=== PATIENT | male | born 1955 | race Caucasian/White ===

== ENCOUNTER 2024-03-08 07:17 | Day surgery (SDC) | payer MEDICARE ==
[~2024-03-08 07:17] MED LIST: Brimonidine 0.2% Ophth Soln 5 ML Bottle EYERT ONE; Cyclopentolate 1% Opth Soln 2 ML Bottle EYERT SCH; Lactated Ringers 1,000 ML IV SCH; Lidocaine 1% PF 2 ML SDV INJECT SCH; MOXIFLOXACIN PF in BSS 1 MG/ML VIAL IO SCH; Phenylephrine 2.5% Ophth Soln 2 ML Bot EYERT SCH; Phenyleprhine/Ketorolac 4 ML Vial OP SCH; Povidone-Iodine 5% Sterile Ophth Soln 30 ML Bottle EYERT SCH; Tetracaine HCl/PF 0.5% 4 ML Bottle EYERT SCH; Tropicamide 1% Ophth Soln 3 ML Bottle EYERT SCH; acetaZOLAMIDE 500 MG Cap.ER PO SCH
[2024-03-08] MEDS: Tropicamide 1% Ophth Soln 3 ML Bottle EYERT SCH (07:55)
[2024-03-08] MEDS: Phenylephrine 2.5% Ophth Soln 2 ML Bot EYERT SCH (07:55)
[2024-03-08] MEDS: Cyclopentolate 1% Opth Soln 2 ML Bottle EYERT SCH (07:57)
[2024-03-08] MEDS ORDERED: fentaNYL 50 MCG/ML SDV ONE (08:40)
[2024-03-08] MEDS ORDERED: Midazolam 1 MG/ML 2 ML SDV ONE (08:40)
[2024-03-08] MEDS: Lidocaine 1% PF 2 ML SDV INJECT SCH (08:44)
[2024-03-08] MEDS: Brimonidine 0.2% Ophth Soln 5 ML Bottle EYERT ONE (08:44)
[2024-03-08] MEDS: MOXIFLOXACIN PF in BSS 1 MG/ML VIAL IO SCH (08:44)
[2024-03-08] MEDS: Phenyleprhine/Ketorolac 4 ML Vial OP SCH (08:44)
[2024-03-08] MEDS: Povidone-Iodine 5% Sterile Ophth Soln 30 ML Bottle EYERT SCH (08:44)
[2024-03-08] MEDS: Tetracaine HCl/PF 0.5% 4 ML Bottle EYERT SCH (08:44)
[2024-03-08] MEDS: acetaZOLAMIDE 500 MG Cap.ER PO SCH (09:22)
[2024-03-08 09:50] VITALS: BP 126/78; PULSE 60
== END 2024-03-08 09:56 | disposition home or self-care (01) ==
LOC: CC.SDS 07:17
PROVIDERS: ATTEND Ophthalmology
DX: H26.8 Other specified cataract (principal); H57.03 Miosis; I12.9 Hypertensive chronic kidney disease with stage 1 through stage 4 chronic kidney disease, or unspecified chronic kidney disease; N18.2 Chronic kidney disease, stage 2 (mild); F41.9 Anxiety disorder, unspecified; F17.210 Nicotine dependence, cigarettes, uncomplicated; Z79.82 Long term (current) use of aspirin; Z79.899 Other long term (current) drug therapy
CPT/HCPCS: A9270-GY; J1097; J2250; J3010; J3490

== ENCOUNTER 2024-04-12 07:09 | Day surgery (SDC) | payer MEDICARE ==
[2024-04-12] MEDS ORDERED: Sodium Chloride 0.9% 10 ML Syringe FLUSH PRN (07:45)
[2024-04-12] MEDS: Cyclopentolate 1% Opth Soln 2 ML Bottle EYELF SCH (07:57)
[2024-04-12] MEDS: Phenylephrine 2.5% Ophth Soln 2 ML Bot EYELF SCH (07:58)
[2024-04-12] MEDS: Tropicamide 1% Ophth Soln 3 ML Bottle EYELF SCH (07:59)
[2024-04-12] MEDS ORDERED: fentaNYL 50 MCG/ML SDV ONE (08:32)
[2024-04-12] MEDS ORDERED: Midazolam 1 MG/ML 2 ML SDV ONE ×2 (08:32)
[2024-04-12] MEDS: MOXIFLOXACIN PF in BSS 1 MG/ML VIAL IO SCH (08:43)
[2024-04-12] MEDS: Brimonidine 0.2% Ophth Soln 5 ML Bottle EYELF SCH (08:43)
[2024-04-12] MEDS: Povidone-Iodine 5% Sterile Ophth Soln 30 ML Bottle EYELF SCH (08:43)
[2024-04-12] MEDS: Phenyleprhine/Ketorolac 4 ML Vial OP SCH (08:43)
[2024-04-12] MEDS: Tetracaine HCl/PF 0.5% 4 ML Bottle EYELF SCH (08:43)
[2024-04-12] MEDS: Lidocaine 1% PF 2 ML SDV INJECT SCH (08:43)
[2024-04-12] MEDS ORDERED: Lidocaine 1% PF 2 ML SDV INJECT SCH (09:00)
[2024-04-12] MEDS: acetaZOLAMIDE 500 MG Cap.ER PO SCH (09:13)
== END 2024-04-12 09:49 | disposition home or self-care (01) ==
LOC: CC.SDS 07:09
PROVIDERS: ATTEND Ophthalmology
DX: H26.8 Other specified cataract (principal); H57.03 Miosis; I12.9 Hypertensive chronic kidney disease with stage 1 through stage 4 chronic kidney disease, or unspecified chronic kidney disease; N18.9 Chronic kidney disease, unspecified; F17.210 Nicotine dependence, cigarettes, uncomplicated; Z79.82 Long term (current) use of aspirin; Z79.899 Other long term (current) drug therapy
CPT/HCPCS: 00142; A9270-GY; J1097; J2250; J3010; J3490; V2632